=== PATIENT | male | born 1955 | race Caucasian/White ===

== ENCOUNTER 2021-12-07 08:11 | Emergency (ER) | payer MEDICARE ==
[~2021-12-07] VITALS: Ht 175.3 cm; Wt 67.1 kg
[2021-12-07] MEDS ORDERED: MAGNESIUM/ALUMINUM/SIMETHICONE 30 ML UDC PO ONE (08:30)
[2021-12-07] MEDS ORDERED: LIDOCAINE VISC 2% SOLN 15 ML UDC PO ONE (08:30)
[2021-12-07] MEDS ORDERED: BELLADONNA ALK/PHENOBARBITAL 5 ML UDC PO ONE (08:30)
== END 2021-12-07 09:02 | disposition home or self-care (01) ==
LOC: ER 08:14
DX: K20.90 Esophagitis, unspecified without bleeding (principal); K29.70 Gastritis, unspecified, without bleeding; F41.9 Anxiety disorder, unspecified
CPT/HCPCS: 99282